=== PATIENT | male | born 1950 | race Caucasian/White ===

== ENCOUNTER 2016-07-22 11:07 | Emergency (ER) | payer MEDICARE, MEDICAID ==
[2016-07-22] MEDS ORDERED: Azithromycin 250 MG TAB ONE (12:21)
[2016-07-22] MEDS ORDERED: Benzonatate 100 MG CAP ONE (12:21)
[2016-07-22 13:07] LABS: #Basophils 0.1 thou/uL (0.0-0.2); #Eosinphils 0.5 thou/uL (0.0-0.7); #Monocytes 0.7 thou/uL (0.11-0.59); #Neutrophils 8.7 thou/uL (1.40-6.50); %Eosinophils 4.6 % (0.0-10.0); %Lymphocytes 9.4 % (21.0-51.0); %Monocytes 6.6 % (0.0-10.0); %Neutrophils 78.5 % (42.0-75.0); Hemoglobin 15.1 g/dL (14.0-18.0); Mean Corpuscular HGB CONC 34.6 g/dL (32.0-36.0); Mean Corpuscular Hemoglobin 31.7 pg (27.0-31.0); Mean Corpuscular Volume 91.7 fl (80.0-94.0); Mean Platelet Volume 7.4 fL (7.4-10.4); Platelet Count 276 thou/uL (130-400); RBC Distribution Width 11.9 % (11.5-14.5); Red Blood Cell (RBC) Count 4.75 mill/uL (4.70-6.10)
--- NOTE | 2016-07-22 13:34 | ERRECORD ---
[facility] EMERGENCY RECORD HPI COUGH (12:11 LLDO) CHIEF COMPLAINT: Patient presents for evaluation of cough, productive of green sputum, Patient presents for evaluation of copious phlem. fever, worsening cough over 6 weeks or more. see triage note. HISTORIAN: History provided by patient. LOCATION: Symptoms are generalized. QUALITY: Denies tightness, Denies wheezing, Pain is dull in nature, described as aching. SEVERITY: Maximum severity of symptoms moderate, Currently symptoms are moderate. TIME COURSE: Gradual onset of symptoms, Symptoms are worsening, are constant. ASSOCIATED WITH: Associated symptoms reviewed, Associated with fever, Associated with nausea, Associated with upper respiratory infection, Associated with weakness. EXACERBATED BY: Patient's condition exacerbated by deep breaths, Patient's condition exacerbated by exercise, Patient's condition exacerbated by lying flat. RELIEVED BY: Patient's condition relieved by nothing. ROS CONSTITUTIONAL: Historian reports fatigue, reports fever, reports malaise, reports weakness. (12:14 LLDO) EYES: Negative eye review of systems, Historian denies eye pain, denies eye redness, denies eye discharge. (12:19 LLDO) ENT: Historian reports sore throat, pt says sore throat is from cough. (12:14 LLDO) CARDIOVASCULAR: Historian reports dyspnea on exertion. (12:14 LLDO) RESPIRATORY: Historian reports cough, reports sputum. described as thick, green, Historian denies stridor, denies wheezing. (12:14 LLDO) GI: Negative gastrointestinal review of systems, Historian denies abdominal pain, denies constipation, denies diarrhea, denies nausea, denies vomiting. (12:19 LLDO) MUSCULOSKELETAL: Historian reports myalgias. (12:14 LLDO) NEUROLOGIC: Historian denies confusion, denies dizziness, denies dysphasia, denies focal weakness, denies gait changes, reports headache, denies irritability, denies lethargy, denies mental status changes. (12:14 LLDO) HEMO/LYMPHATIC: Normal hematologic/lymphatic system review, Historian denies abnormal blood clotting, denies gum bleeding, denies petechiae. (12:19 LLDO) ALLERGIC/IMMUNOLOGIC: Normal allergy/immunologic system review, Historian denies eczema, denies environmental allergies, denies food allergies. (12:19 LLDO) PSYCHIATRIC: Historian reports anxiety, reports &a-1R&a+25V*p+0X*[id number]*c202B*c15G*c2P*p-0X&a-25V&a+1R Name: Manuel Mina : 1950 M65 MedRec: [id number] AcctNum: [id number] Prepared: [facility] Jul 22, 2016 21:13 by Interface Page 1 of 4 pMD [facility] EMERGENCY RECORD depression. (12:17 LLDO) NOTES: All systems reviewed, negative except as described above. (12:14 LLDO) PAST MEDICAL HISTORY MEDICAL HISTORY: Notes: chronic bronchitis, Flu vaccine up to date, Tetanus immunization up to date, Pneumococcal vaccine up to date. (11:31 CJEF) MALE SURGICAL HISTORY: bilateral cataracts, hernia repair,. (11:31 CJEF) PSYCHIATRIC HISTORY: No previous psychiatric history, no previous inpatient psychiatric admissions, no previous emergency department psychiatric evaluations, No previous psychiatric history. (11:31 CJEF) SOCIAL HISTORY: Patient denies alcohol use, Patient denies drug use, Patient has no smoking history, Patient denies alcohol use, Patient denies drug use, Patient has no smoking history. (11:31 CJEF) NOTES: Nursing records reviewed, Agree with nursing records, Medication list reviewed. (12:18 LLDO) KNOWN ALLERGIES codeine sulfate: Reaction: Rash, Severity: Mild, Source: Patient, - MAKES HIM ITCH No Known Allergies (Unconfirmed) CURRENT MEDICATIONS (11:29 CJEF) ibuprofen: TABLET : Strength - 800 mg : ORAL Patient Dose: 800 mg Oral every 8 hours PRN. VITAL SIGNS VITAL SIGNS: BP: 164/77, Pulse: 93, Resp: 18, Temp: 99.7 (Tympanic), Pain: 8, O2 sat: 99 on Room Air, Time: 07/22/2016 11:24. (11:24 CJEF) BP: 168/79, Pulse: 96, Resp: 18, O2 sat: 97 on Room Air, Time: 07/22/2016 11:57. (11:57 LWAL) BP: 164/78, Pulse: 91, Resp: 18, O2 sat: 98 on Room Air, Time: 07/22/2016 13:12. (13:12 CJEF) Temp: 98.3 (Tympanic), Pain: 8, Time: 07/22/2016 13:36. (13:36 [facility]) PHYSICAL EXAM CONSTITUTIONAL: Vital Signs Reviewed, Patient febrile, temperature of 99.7, Pulse normal, Blood pressure, BP IS ELEVATED, Respiratory rate normal, Normal pulse oximetry, Patient appears, uncomfortable, Patient appears, in moderate pain distress, Patient alert and oriented to person, place and time, Nursing notes reviewed. (12:17 LLDO) HEAD: Head exam normal, Head exam included findings of head &a-1R&a+25V*p+0X*x4987K*c202B*c15G*c2P*p-0X&a-25V&a+1R Name: Manuel Mina : 1950 M65 MedRec: [id number] AcctNum: [id number] Prepared: Maggie Jul 22, 2016 21:13 by Interface Page 2 of 4 pMD [facility] EMERGENCY RECORD atraumatic, normocephalic. (12:19 LLDO) EYES: Eye exam normal, Eye exam included findings of eyelids normal to inspection, Pupils equally round and reactive to light, Extraocular muscles intact. (12:19 LLDO) ENT: Ear exam normal, Nose exam normal, Pharynx, injected bilaterally, with swelling bilaterally, symmetrical, Uvula exam normal, Mouth exam normal, Sinus exam included findings of frontal sinuses normal, maxillary sinuses normal. (12:17 LLDO) NECK: Neck exam included findings of normal range of motion, Trachea midline, Thyroid normal, no meningeal signs, Cervical adenopathy, diffuse, multiple nodes, tender, swollen. (12:17 LLDO) RESPIRATORY CHEST: Respiratory exam included findings of no respiratory distress, Rales present, Chest exam included findings of chest movement symmetrical, Chest expansion equal, no tenderness, RALES MOD AND SCATTERED. (12:17 LLDO) CARDIOVASCULAR: Cardiovascular exam included findings of heart rate regular rate and rhythm, Heart sounds normal. (12:17 LLDO) ABDOMEN MALE: Abdominal exam normal, Abdominal exam included findings of abdomen nontender, Bowel sounds normal, no peritoneal signs. (12:19 LLDO) BACK: Back exam normal, Back exam included findings of normal inspection, range of motion normal. (12:19 LLDO) UPPER EXTREMITY: Upper extremity exam normal, Upper extremity exam included findings of inspection normal, Range of motion normal. (12:19 LLDO) LOWER EXTREMITY: Lower extremity exam normal, Lower extremity exam included findings of inspection normal, Range of motion normal. (12:19 LLDO) NEURO: Neuro exam normal, Neuro exam findings include patient oriented to person, place and time, Speech normal, [place] coma scale 15. (12:19 LLDO) SKIN: Skin exam normal, Skin exam included findings of skin warm, dry, and normal in color, no rash. (12:19 LLDO) PSYCHIATRIC: Psychiatric exam normal, Psychiatric exam included findings of patient oriented to person place and time, Normal affect, Judgment normal. (12:19 LLDO) MEDICATION ADMINISTRATION SUMMARY Drug Name: Ana Oquendo, Dose Ordered: 200 mg, Route: Oral, Status: Given, Time: 12:25 07/22/2016, Drug Name: Zithromax oral, Dose Ordered: 500 mg, Route: Oral, Status: Given, Time: 12:25 07/22/2016, Detailed record available in Medication Service section. DOCTOR NOTES (13:38 LLDO) TEXT: pt beginning to feel better. &a-1R&a+25V*p+0X*o4401K*c202B*c15G*c2P*p-0X&a-25V&a+1R Name: Manuel Mina : 1950 M65 MedRec: [id number] AcctNum: [id number] Prepared: [facility] Jul 22, 2016 21:13 by Interface Page 3 of 4 pMD [facility] EMERGENCY RECORD PROBLEM LIST No recorded problems DIAGNOSIS (13:23 LLDO) FINAL: PRIMARY: Acute bronchitis. PRESCRIPTION Phenergan DM: SYRUP : : ORAL : Quantity: 1-2 Unit: teaspoon Route: ORAL Schedule: every 4 hours prn Dispense: 180 Unit: mL May substitute. Refills: No Refills . (13:24 LLDO) NOTES: No Refills. (13:24 LLDO) Zithromax Z-Noé: CAPSULE (HARD, SOFT, ETC.) : 250 mg : ORAL : Quantity: * Unit: Route: ORAL Schedule: See Notes Dispense: 1PK May substitute. Refills: No Refills . (13:24 LLDO) NOTES: TAKE DIRECTED ON PACKAGE No Refills. (13:24 LLDO) Phenergan DM (REPRINT): SYRUP : : ORAL : Quantity: 1-2 Unit: teaspoon Route: ORAL Schedule: every 4 hours prn Dispense: 180 Unit: mL May substitute. Refills: No Refills . (13:39 LLDO) Zithromax Z-Noé (REPRINT): CAPSULE (HARD, SOFT, ETC.) : 250 mg : ORAL : Quantity: * Unit: Route: ORAL Schedule: See Notes Dispense: 1PK May substitute. Refills: No Refills . (13:39 LLDO) DISPOSITION PATIENT: Disposition Type: Discharge, Disposition: *Discharge Home. (13:23 LLDO) Patient left the department. (13:36 CJ) Pinon: CJEF=LYNNE Lassiter, Eugenia LLDO=MD Ismael, Nabor LWAL=LYNNE Costello, Payal &a-1R&a+25V*p+0X*[id number]*c202B*c15G*c2P*p-0X&a-25V&a+1R Name: Manuel Mina : 1950 M65 MedRec: [id number] AcctNum: [id number] Prepared: Maggie Jul 22, 2016 21:13 by Interface Page 4 of 4 pMD MTDD
--- NOTE | 2016-07-22 13:37 | RAD ---
RADIOGRAPH CHEST 2 VIEWS: HISTORY: A 65-year-old male with acute cough. FINDINGS: There is no air space density, pulmonary edema, pleural effusion, pneumothorax, or cardiomegaly. IMPRESSION: No acute cardiopulmonary findings. jn [] POS: [facility]
--- NOTE | 2016-07-22 13:38 | PICIS ---
[facility] EMERGENCY RECORD TRIAGE (11:28 CJEF) PATIENT: NAME: Manuel Mina, AGE: 65, GENDER: male, : Tue1950, TIME OF GREET: TueJul 22, 2016 11:08, PREFERRED LANGUAGE: Sammarinese, ETHNICITY: Not or , FALL RISK: NO, ECODE BILLING MAP: [facility] ER, SSN: [id number], Zip Code: [facility], KG WEIGHT: 83.91, PHONE: , , , PERSON ID: [id number], PCP: MD Conroy Grover. (11:28 CJEF) TRIAGE NOTES: PT REPORTS BRONCHITIS X6 WEEKS. PT REPORTS WEAKNESS THAT STARTED THIS MORNING. PT REPORTS THAT HE IS HERE FOR SOMETHING TO "KNOCK OUT THE BRONCHITIS". PT REPORTS THAT [employer] USUALLY WORKS FOR HIM. PT REPORTS COUGH X6 WEEKS WITH PRODUCTION OF GREEN PHLEM. PT WITH CHRONIC BRONCHITIS. PT STATES THAT HE WAS SEEN IN [facility] FOR THE SAME 6 WEEKS AGO. (11:28 CJEF) COMPLAINT: DIFFICULTY BREATHING. (11:28 CJEF) ADMISSION: URGENCY: 3 Urgent, ADMISSION SOURCE: Home, TRANSPORT: Walk-in, BED: TRIAGE. (11:28 CJEF) ASSESSMENT: Assessment: COUGH X6 WEEKS. (11:31 CJEF) PAIN: Patient complains of pain described as, Location GENERALIZED. (11:31 CJEF) IMMUNIZATIONS: Flu vaccine up to date, Tetanus immunization up to date, Pneumococcal vaccine up to date. (11:31 CJEF) SIRS SCORING: Heart Rate 55-109 (0), Temp range 96.8-101.1 (0), respiratory rate 12-24 (0), Mental Status altered: no (0), Yes, Infection or Suspected Infection. (11:31 CJEF) SIRS NOTIFICATION: Yes, Infection or Suspected Infection. (11:31 CJEF) TRIAGE SCREENING: Patient denies suicidal ideation, Patient denies presence of domestic violence. (11:31 CJEF) PROVIDERS: TRIAGE NURSE: Eugenia Lassiter RN. (11:28 CJEF) VITAL SIGNS: BP 164/77, Pulse 93, Resp 18, Temp 99.7, (Tympanic), Pain 8, O2 Sat 99, on Room Air, Time 07/22/2016 11:24. (11:24 CJEF) PREVIOUS VISIT ALLERGIES: codeine sulfate. (11:28 CJEF) codeine sulfate. (11:31 CJEF) KNOWN ALLERGIES codeine sulfate: Reaction: Rash, Severity: Mild, Source: Patient, - MAKES HIM ITCH No Known Allergies (Unconfirmed) CURRENT MEDICATIONS (11:29 CJEF) ibuprofen: TABLET : Strength - 800 mg : ORAL Patient Dose: 800 mg Oral every 8 hours PRN. VITAL SIGNS VITAL SIGNS: BP: 164/77, Pulse: 93, Resp: 18, Temp: 99.7 (Tympanic), Pain: 8, O2 sat: 99 on Room Air, Time: 07/22/2016 11:24. (11:24 CJEF) BP: 168/79, Pulse: 96, Resp: 18, O2 sat: 97 on Room Air, Time: 07/22/2016 &a-1R&a+25V*p+0X*x2345Y*c202B*c15G*c2P*p-0X&a-25V&a+1R Name: Manuel Mina : 1950 M65 MedRec: [id number] AcctNum: [id number] Prepared: Maggie Jul 22, 2016 21:20 by Interface Page 1 of 8 pMD [facility] EMERGENCY RECORD 11:57. (11:57 LWAL) BP: 164/78, Pulse: 91, Resp: 18, O2 sat: 98 on Room Air, Time: 07/22/2016 13:12. (13:12 CJEF) Temp: 98.3 (Tympanic), Pain: 8, Time: 07/22/2016 13:36. (13:36 CJEF) NURSING ASSESSMENT: FALL RISK (11:33 CJEF) FALL RISK: Total score 0, No risk for fall. HENDR[place] II FALL RISK: Able to rise in a single movement; no loss of balance with steps(0), Total score 0, Score less than 5. Patient not high risk for falls. NURSING ASSESSMENT: RESPIRATORY /CHEST (11:31 CJEF) CONSTITUTIONAL: Complex assessment performed, Patient arrives ambulatory, Gait steady, History obtained from patient, Patient appears, anxious, Patient cooperative, Patient alert, Oriented to person, place and time, Skin warm, Skin dry, Skin normal in color, Mucous membranes pink, Mucous membranes moist, Patient is well-groomed, PT REPORTS BRONCHITIS X6 WEEKS. PT REPORTS WEAKNESS THAT STARTED THIS MORNING. PT REPORTS THAT HE IS HERE FOR SOMETHING TO "KNOCK OUT THE BRONCHITIS". PT REPORTS THAT [employer] USUALLY WORKS FOR HIM. PT REPORTS COUGH X6 WEEKS WITH PRODUCTION OF GREEN PHLEM. PT WITH CHRONIC BRONCHITIS. PT STATES THAT HE WAS SEEN IN [facility] FOR THE SAME 6 WEEKS AGO. PAIN: aching pain, GENERALIZED, on a scale 0-10 patient rates pain as 8. RESPIRATORY/CHEST: Breath sounds clear, Respiratory assessment findings include respiratory effort easy, Respirations regular, Conversing normally, Neck and chest exam findings include trachea midline, Chest expansion equal, Chest movement symmetrical, no signs of distress, Associated with cough, productive of, green sputum, X 6 WEEKS, no associated fever. ENT: Ear assessment findings include ear normal to inspection, Nasal assessment findings include nose normal to inspection, Mouth and throat assessment findings include mouth inspection normal. NOTES: Patient tolerated procedure well. SAFETY: Side rails up, Cart/Stretcher in lowest position, Family at bedside, Call light within reach, Hospital ID band on. NURSING ASSESSMENT: SKIN (11:33 CJEF) SKIN: Skin assessment findings include skin warm, Skin dry, Skin normal in color. ALISON SCALE: (4) Sensory perception has no impairment, (4) Skin is rarely moist, (4) Patient walks frequently, (4) No mobility limitations, (3) Adequate nutrition, (3) Patient has no apparent problem moving, Alison Risk Total: 22. NOTES: Patient tolerated procedure well. SAFETY: Side rails up, Cart/Stretcher in lowest position, Family at bedside, Call light within reach, Hospital ID band on. &a-1R&a+25V*p+0X*l6741K*c202B*c15G*c2P*p-0X&a-25V&a+1R Name: Manuel Mina : 1950 M65 MedRec: [id number] AcctNum: [id number] Prepared: [facility] Jul 22, 2016 21:20 by Interface Page 2 of 8 pMD [facility] EMERGENCY RECORD NURSING PROCEDURE: PHARMACIST ASSISTANT (11:37 CJEF) PATIENT IDENTIFIER: Patient actively involved in identification process, Patient's identity verified by patient stating name, Patient's identity verified by patient stating date. PHARMACIST ASSISTANT: Patient placed on non-invasive blood pressure monitor, with disposable blood pressure cuff applied, Patient placed on continuous pulse oximetry, Adult/pediatric oxisensor applied. FOLLOW-UP: After procedure, alarms set and on, After procedure, patient tolerating monitoring. NOTES: Patient tolerated procedure well. SAFETY: Side rails up, Cart/Stretcher in lowest position, Family at bedside, Call light within reach, Hospital ID band on. NURSING PROCEDURE: DISCHARGE NOTE (13:36 CJEF) DISCHARGE: Patient discharged to home, ambulating without assistance, driving self, unaccompanied, Summary of Care printed/ provided, Patient requested and was provided an electronic copy of Discharge Instructions, Transition record given to patient, Discharge instructions given to patient, Simple or moderate discharge teaching performed, Prescriptions given and instructions on side effects given, Medication reconciliation form given, Above person(s) verbalized understanding of discharge instructions and follow-up care, Patient treated and evaluated by physician. BELONGINGS: Belongings remain with patient. NOTES: Patient tolerated procedure well. SAFETY: Side rails up, Cart/Stretcher in lowest position, Family at bedside, Call light within reach, Hospital ID band on. NURSING PROCEDURE: NURSE NOTES (12:25 CJEF) NURSES NOTES: Patient in no apparent distress, Patient resting quietly, Notes: PT RESTING IN BED QUIETLY WITH NO DISTRESS NOTED. PT DENIES ANY NEEDS. NURSING PROCEDURE: TRANSPORT TO TESTS PATIENT IDENTIFIER: Patient actively involved in identification process, Patient's identity verified by patient stating name, Patient's identity verified by patient stating date. (12:48 CJEF) TRANSPORT TO TESTS: Transport indicated to facilitate diagnosis, Patient transported to x-ray, via wheelchair, Accompanied by x-ray solder technician. (12:48 CJEF) FOLLOW-UP: After procedure, patient returned to emergency department. (13:00 CJEF) NOTES: Patient tolerated procedure well. (12:48 CJEF) SAFETY: Side rails up, Cart/Stretcher in lowest position, Family at bedside, Call light within reach, Hospital ID band on. (12:48 CJEF) ORDER DETAILS &a-1R&a+25V*p+0X*v9525C*c202B*c15G*c2P*p-0X&a-25V&a+1R Name: Manuel Mina : 1950 M65 MedRec: [id number] AcctNum: [id number] Prepared: TueJul 22, 2016 21:20 by Interface Page 3 of 8 D [facility] EMERGENCY RECORD Order Name: CBC with Differential, Status: Active, Time: 12:06 07/22/2016, User: LUCY, - Ordered for: MD Guevara Lloyd, - Entered by: MD Guevara Lloyd - [facility] Jul 22, 2016 12:06, - Quantity: 1, Order Name: XR Chest Pa & Lat STANDARD, Status: Active, Time: 12:06 07/22/2016, User: LUCY, - Ordered for: MD Guevara Lloyd, - Entered by: MD Guevara Lloyd - [facility] Jul 22, 2016 12:06, - Quantity: 1. MEDICATION ADMINISTRATION SUMMARY Drug Name: Tessalon Perllynn, Dose Ordered: 200 mg, Route: Oral, Status: Given, Time: 12:25 07/22/2016, Drug Name: Zithromax oral, Dose Ordered: 500 mg, Route: Oral, Status: Given, Time: 12:25 07/22/2016, Detailed record available in Medication Service section. MEDICATION SERVICE (12:25 [facility]) Ana Oquendo: Order: Tessalon Perllynn (benzonatate) - Dose: 200 mg : Oral Schedule: Now Ordered by: Nabor Guevara MD Entered by: Nabor Guevara MD Maggie Jul 22, 2016 12:08 , Acknowledged by: Mata Mike RN Maggie Jul 22, 2016 12:20 Documented as given by: Mata Mike RN Maggie Jul 22, 2016 12:25 Patient, Medication, Dose, Route and Time verified prior to administration. Site: Medication administered P.O., Correct patient, time, route, dose and medication confirmed prior to administration, Patient advised of actions and side-effects prior to administration, Allergies confirmed and medications reviewed prior to administration. Zithromax oral: Order: Zithromax oral (azithromycin) - Dose: 500 mg : Oral Schedule: Now Ordered by: Nabor Guevara MD Entered by: Nabor Guevara MD [facility] Jul 22, 2016 12:08 , Acknowledged by: Mata Mike RN [facility] Jul 22, 2016 12:20 Documented as given by: Mata Mike RN [facility] Jul 22, 2016 12:25 Patient, Medication, Dose, Route and Time verified prior to administration. Site: Medication administered P.O., Correct patient, time, route, dose and medication confirmed prior to administration, Patient advised of actions and side-effects prior to administration, Allergies confirmed and medications reviewed prior to administration. HPI COUGH (12:11 LLDO) CHIEF COMPLAINT: Patient presents for evaluation of cough, productive of green sputum, Patient presents &a-1R&a+25V*p+0X*o0794F*c202B*c15G*c2P*p-0X&a-25V&a+1R Name: Manuel Mina : 1950 M65 MedRec: [id number] AcctNum: [id number] Prepared: [facility] Jul 22, 2016 21:20 by Interface Page 4 of 8 pMD [facility] EMERGENCY RECORD for evaluation of copious phlem. fever, worsening cough over 6 weeks or more. see triage note. HISTORIAN: History provided by patient. LOCATION: Symptoms are generalized. QUALITY: Denies tightness, Denies wheezing, Pain is dull in nature, described as aching. SEVERITY: Maximum severity of symptoms moderate, Currently symptoms are moderate. TIME COURSE: Gradual onset of symptoms, Symptoms are worsening, are constant. ASSOCIATED WITH: Associated symptoms reviewed, Associated with fever, Associated with nausea, Associated with upper respiratory infection, Associated with weakness. EXACERBATED BY: Patient's condition exacerbated by deep breaths, Patient's condition exacerbated by exercise, Patient's condition exacerbated by lying flat. RELIEVED BY: Patient's condition relieved by nothing. ROS CONSTITUTIONAL: Historian reports fatigue, reports fever, reports malaise, reports weakness. (12:14 LLDO) EYES: Negative eye review of systems, Historian denies eye pain, denies eye redness, denies eye discharge. (12:19 LLDO) ENT: Historian reports sore throat, pt says sore throat is from cough. (12:14 LLDO) CARDIOVASCULAR: Historian reports dyspnea on exertion. (12:14 LLDO) RESPIRATORY: Historian reports cough, reports sputum. described as thick, green, Historian denies stridor, denies wheezing. (12:14 LLDO) GI: Negative gastrointestinal review of systems, Historian denies abdominal pain, denies constipation, denies diarrhea, denies nausea, denies vomiting. (12:19 LLDO) MUSCULOSKELETAL: Historian reports myalgias. (12:14 LLDO) NEUROLOGIC: Historian denies confusion, denies dizziness, denies dysphasia, denies focal weakness, denies gait changes, reports headache, denies irritability, denies lethargy, denies mental status changes. (12:14 LLDO) HEMO/LYMPHATIC: Normal hematologic/lymphatic system review, Historian denies abnormal blood clotting, denies gum bleeding, denies petechiae. (12:19 LLDO) ALLERGIC/IMMUNOLOGIC: Normal allergy/immunologic system review, Historian denies eczema, denies environmental allergies, denies food allergies. (12:19 LLDO) PSYCHIATRIC: Historian reports anxiety, reports depression. (12:17 LLDO) NOTES: All systems reviewed, negative except as described above. (12:14 LLDO) &a-1R&a+25V*p+0X*x5576B*c202B*c15G*c2P*p-0X&a-25V&a+1R Name: Manuel Mina : 1950 M65 MedRec: [id number] AcctNum: [id number] Prepared: Maggie Jul 22, 2016 21:20 by Interface Page 5 of 8 pMD [facility] EMERGENCY RECORD PAST MEDICAL HISTORY MEDICAL HISTORY: Notes: chronic bronchitis, Flu vaccine up to date, Tetanus immunization up to date, Pneumococcal vaccine up to date. (11:31 CJEF) MALE SURGICAL HISTORY: bilateral cataracts, hernia repair,. (11:31 CJEF) PSYCHIATRIC HISTORY: No previous psychiatric history, no previous inpatient psychiatric admissions, no previous emergency department psychiatric evaluations, No previous psychiatric history. (11:31 CJEF) SOCIAL HISTORY: Patient denies alcohol use, Patient denies drug use, Patient has no smoking history, Patient denies alcohol use, Patient denies drug use, Patient has no smoking history. (11:31 CJEF) NOTES: Nursing records reviewed, Agree with nursing records, Medication list reviewed. (12:18 LLDO) PHYSICAL EXAM CONSTITUTIONAL: Vital Signs Reviewed, Patient febrile, temperature of 99.7, Pulse normal, Blood pressure, BP IS ELEVATED, Respiratory rate normal, Normal pulse oximetry, Patient appears, uncomfortable, Patient appears, in moderate pain distress, Patient alert and oriented to person, place and time, Nursing notes reviewed. (12:17 LLDO) HEAD: Head exam normal, Head exam included findings of head atraumatic, normocephalic. (12:19 LLDO) EYES: Eye exam normal, Eye exam included findings of eyelids normal to inspection, Pupils equally round and reactive to light, Extraocular muscles intact. (12:19 LLDO) ENT: Ear exam normal, Nose exam normal, Pharynx, injected bilaterally, with swelling bilaterally, symmetrical, Uvula exam normal, Mouth exam normal, Sinus exam included findings of frontal sinuses normal, maxillary sinuses normal. (12:17 LLDO) NECK: Neck exam included findings of normal range of motion, Trachea midline, Thyroid normal, no meningeal signs, Cervical adenopathy, diffuse, multiple nodes, tender, swollen. (12:17 LLDO) RESPIRATORY CHEST: Respiratory exam included findings of no respiratory distress, Rales present, Chest exam included findings of chest movement symmetrical, Chest expansion equal, no tenderness, RALES MOD AND SCATTERED. (12:17 LLDO) CARDIOVASCULAR: Cardiovascular exam included findings of heart rate regular rate and rhythm, Heart sounds normal. (12:17 LLDO) ABDOMEN MALE: Abdominal exam normal, Abdominal exam included findings of abdomen nontender, Bowel sounds normal, no peritoneal signs. (12:19 LLDO) BACK: Back exam normal, Back exam included findings of normal &a-1R&a+25V*p+0X*v5068L*c202B*c15G*c2P*p-0X&a-25V&a+1R Name: Manuel Mina : 1950 M65 MedRec: [id number] AcctNum: [id number] Prepared: [facility] Jul 22, 2016 21:20 by Interface Page 6 of 8 pMD [facility] EMERGENCY RECORD inspection, range of motion normal. (12:19 LLDO) UPPER EXTREMITY: Upper extremity exam normal, Upper extremity exam included findings of inspection normal, Range of motion normal. (12:19 LLDO) LOWER EXTREMITY: Lower extremity exam normal, Lower extremity exam included findings of inspection normal, Range of motion normal. (12:19 LLDO) NEURO: Neuro exam normal, Neuro exam findings include patient oriented to person, place and time, Speech normal, [place] coma scale 15. (12:19 LLDO) SKIN: Skin exam normal, Skin exam included findings of skin warm, dry, and normal in color, no rash. (12:19 LLDO) PSYCHIATRIC: Psychiatric exam normal, Psychiatric exam included findings of patient oriented to person place and time, Normal affect, Judgment normal. (12:19 LLDO) EVENTS TRANSFER: Triage to Emergency Triage. (Maggie Jul 22, 2016 11:28 CJEF) Emergency Triage to Main ED -01. (11:35 LWAL) Emergency Main ED -01 to -04. (12:11 CJEF) Removed from Emergency Main ED -04. (13:36 CJEF) DOCTOR NOTES (13:38 LLDO) TEXT: pt beginning to feel better. PROBLEM LIST No recorded problems DIAGNOSIS (13:23 LLDO) FINAL: PRIMARY: Acute bronchitis. DISPOSITION PATIENT: Disposition Type: Discharge, Disposition: *Discharge Home. (13:23 LLDO) Patient left the department. (13:36 CJEF) INSTRUCTION (13:40 LLDO) DISCHARGE: BRONCHITIS, ABX TX (ADULT). FOLLOWUP: MD Marycarmen, [place], [facility], [address] [place] [address], , Follow up with Primary Care Physician in 10-14 days. SPECIAL: Follow-up with your PCP. PRESCRIPTION Phenergan DM: SYRUP : : ORAL : Quantity: 1-2 Unit: teaspoon Route: ORAL Schedule: every 4 hours prn Dispense: 180 Unit: mL May substitute. Refills: No Refills . (13:24 LLDO) NOTES: No Refills. (13:24 LLDO) &a-1R&a+25V*p+0X*x0140Z*c202B*c15G*c2P*p-0X&a-25V&a+1R Name: Manuel Mina : 1950 M65 MedRec: [id number] AcctNum: [id number] Prepared: TueJul 22, 2016 21:20 by Interface Page 7 of 8 pMD [facility] EMERGENCY RECORD Zithromax Z-Noé: CAPSULE (HARD, SOFT, ETC.) : 250 mg : ORAL : Quantity: * Unit: Route: ORAL Schedule: See Notes Dispense: 1PK May substitute. Refills: No Refills . (13:24 LLDO) NOTES: TAKE DIRECTED ON PACKAGE No Refills. (13:24 LLDO) Phenergan DM (REPRINT): SYRUP : : ORAL : Quantity: 1-2 Unit: teaspoon Route: ORAL Schedule: every 4 hours prn Dispense: 180 Unit: mL May substitute. Refills: No Refills . (13:39 LLDO) Zithromax Z-Noé (REPRINT): CAPSULE (HARD, SOFT, ETC.) : 250 mg : ORAL : Quantity: * Unit: Route: ORAL Schedule: See Notes Dispense: 1PK May substitute. Refills: No Refills . (13:39 LLDO) IMAGING (13:37 CJ) DISCH: Image captured from scanner. *SUPPLY CHARGE SHEET: Image captured from scanner. ADMIN DIGITAL SIGNATURE: MD Guevara Lloyd. (13:25 LLDO) MD Guevara Lloyd. (21:10 LLDO) Pinon: CJEF=LYNNE Lassiter, Eugenia LLDO=MD Guevara Lloyd LWAL=LYNNE Costello, Payal &a-1R&a+25V*p+0X*a1854H*c202B*c15G*c2P*p-0X&a-25V&a+1R Name: Manuel Mina : 1950 M65 MedRec: [id number] AcctNum: [id number] Prepared: TueJul 22, 2016 21:20 by Interface Page 8 of 8 pMD [facility] MEDICATION RECONCILIATION You were seen in the Emergency Department on: TueJul 22, 2016 KNOWN ALLERGIES codeine sulfate: Reaction: Rash, Severity: Mild, Source: Patient, - MAKES HIM ITCH No Known Allergies (Unconfirmed) MEDICATIONS GIVEN WHILE IN THE EMERGENCY DEPARTMENT Tessalon Perles (benzonatate) - Dose: 200 milligram(s) : Oral Zithromax oral (azithromycin) - Dose: 500 milligram(s) : Oral HOME MEDICATIONS CONTINUE PRESCRIBED ibuprofen : TABLET : Strength - 800 mg : ORAL Continue as prescribed Patient had been takin mg Oral every 8 hours PRN. Notes from the emergency department Reviewed with patient Reviewed with patient PRESCRIPTIONS (2) Printed (2) Phenergan DM : SYRUP : : ORAL Quantity: 1-2, Unit: teaspoon, Route: ORAL, Schedule: every 4 hours prn, Dispense: 180 Unit: milliliter(s) &a-1R&a+25V*p+0X*o9027E*c202B*c15G*c2P*p-0X&a-25V&a+1R Name: Manuel Mina : 1950 M65 MedRec: [id number] AcctNum: [id number] Prepared: TueJul 22, 2016 21:20 by Interface pMAllison MEDEL
== END 2016-07-22 13:28 | disposition home or self-care (01) ==
LOC: MADERS 11:07
DX: J20.9 Acute bronchitis, unspecified (principal)
CPT/HCPCS: 36415; 71020; 85025; 99283